=== PATIENT | female | born 2005 | race Hispanic/Latino ===

== ENCOUNTER 2024-03-10 13:56 | Emergency (ER) | payer SELFPAY ==
[~2024-03-10] VITALS: Ht 162.6 cm; Wt 58.9 kg
[2024-03-10] VITALS (17 sets, daily range): BP systolic 121–145; BP diastolic 71–95
[2024-03-10 14:44] LABS: URINE BLOOD DIPSTICK Moderate (NEGATIVE); URINE COLOR Yellow; URINE GLUCOSE - DIPSTICK Negative (NEGATIVE); URINE KETONE 15 mg/dL (NEGATIVE); URINE LEUK ESTERASE Negative (NEGATIVE); URINE NITRITE - DIPSTICK Negative (Negative); URINE PH 6.5 (4.5-8.0); URINE PROTEIN - DIPSTICK >=300 mg/dL (NEG-TRACE); URINE SPECIFIC GRAVITY >=1.030; URINE UROBILINOGEN - DIPSTICK 0.2 E.U./dL (0.2)
[2024-03-10 14:44] LABS: BASO% 0.5 % (0-3); EOS% 3.5 % (0-8); HEMATOCRIT 33.9 % (37.0-47.0); HEMOGLOBIN 10.8 g/dl (12.0-16.0); IMMATURE GRANULOCYTES 0.3 % (0.0-5.0); LYMPH% 22.5 % (15-41); MEAN CELL VOLUME 95.5 fL CALC (80.0-100.0); MEAN CORPUSCULAR HGB 30.4 pG CALC (26.0-32.0); MEAN CORPUSCULAR HGB CONC 31.9 g/dL CAL (32.0-36.0); MONO% 9.5 % (2-13); NEUT# 6.09 thou/uL (2.00-7.15); NEUT% 63.7 % (42-76); RED BLOOD COUNT 3.55 mill/uL (4.20-5.60); RED CELL DISTRI WIDTH 11.9 % (11.5-15.5)
[2024-03-10 14:52] LABS: URINE BACTERIA FEW hpf; URINE SQUAMOUS EPITHELIAL CELL FEW EPI/hpf (0-FEW)
[2024-03-10 15:06] LABS: ALBUMIN 1.5 g/dL (3.2-5.0); CREATININE 0.8 mg/dL (0.5-1.0); POTASSIUM 4.5 mmol/l (3.5-5.1); TOTAL PROTEIN 3.5 g/dL (6.3-8.2)
[2024-03-10] MEDS ORDERED: SODIUM CHLORIDE 0.9% 1,000 ML IV ONE (15:20)
[2024-03-10] MEDS ORDERED: AZITHROMYCIN 500 MG in SODIUM CHLORIDE 0.9% 250 ML IV ONE (17:25)
[2024-03-10] MEDS ORDERED: FUROSEMIDE 40 MG/4 ML SDV IV ONE (17:45)
== END 2024-03-10 18:34 | disposition short-term general hospital (02) | DRG 187 ==
LOC: ED 13:56
PROVIDERS: Nurse Practitioner
DX: J90 Pleural effusion, not elsewhere classified (principal); R18.8 Other ascites; E83.51 Hypocalcemia
CPT/HCPCS: J0456; Q9967